=== PATIENT | female | born 1940 | race Caucasian/White ===

== ENCOUNTER 2022-11-11 14:18 | Emergency (ER) | payer OTHER ==
[~2022-11-11] VITALS: Ht 152.4 cm; Wt 92.1 kg
[2022-11-11 14:30] VITALS: BP_SYST 158; PULSE 66; RESP 18; TEMP 97.8; O2SAT 97
[2022-11-11] MEDS ORDERED: ACETAMINOPHEN 500 MG TABLET PO ONE (15:45)
[2022-11-11 17:33] VITALS: BP_SYST 143; PULSE 70; RESP 16; TEMP 98.4; O2SAT 96
== END 2022-11-11 17:31 | disposition home or self-care (01) ==
LOC: SED 14:18
DX: H54.7 Unspecified visual loss (principal); Z79.899 Other long term (current) drug therapy
CPT/HCPCS: 70450-TC; 70480; 76376; 99284